=== PATIENT | female | born 1945 | race American Indian/Alaskan Native ===

== ENCOUNTER 2017-04-22 13:22 | Outpatient (CLI) | payer MEDICARE ==
--- NOTE | 2017-04-22 14:03 | XRay Report ---
ROUTINE CHEST, TWO VIEWS: HISTORY: Chronic kidney disease. No comparison. Mild cardiomegaly and trace left pleural effusion are identified. The lungs are clear. No evidence for pneumonia or pneumothorax. Bony structures are grossly intact. Thoracic spondylosis is noted. IMPRESSION: Mild cardiomegaly. Trace left pleural effusion.
== END 2017-04-22 13:23 | disposition home or self-care (01) ==
LOC: XRAY 13:22
PROVIDERS: ATTEND Internal Medicine
DX: N18.5 Chronic kidney disease, stage 5 (principal); I51.7 Cardiomegaly; M47.894 Other spondylosis, thoracic region
CPT/HCPCS: 71046

== ENCOUNTER 2021-07-25 15:08 | Emergency (ER) | payer MEDICARE | END 2021-07-25 18:47 | disposition left against medical advice (07) | LOC: ED 15:08 | DX: S49.92XA Unspecified injury of left shoulder and upper arm, initial encounter (principal); Z53.21 Procedure and treatment not carried out due to patient leaving prior to being seen by health care provider; X58.XXXA Exposure to other specified factors, initial encounter; Y93.89 Activity, other specified; Y92.89 Other specified places as the place of occurrence of the external cause; Y99.8 Other external cause status ==